=== PATIENT | male | born 1950 | race Caucasian/White ===

== ENCOUNTER 2017-07-03 09:43 | Outpatient (CLI) | payer OTHER ==
[2017-07-03 11:49] LABS: #Lymphocytes 0.7 thou/uL (1.20-3.40); #Monocytes 0.6 thou/uL (0.11-0.59); #Neutrophils 2.5 thou/uL (1.40-6.50); %Basophils 0.5 % (0.0-1.0); %Eosinophils 0.2 % (0.0-10.0); %Lymphocytes 19.4 % (21.0-51.0); %Monocytes 14.8 % (0.0-10.0); Hematocrit 44.5 % (42.0-52.0); Mean Platelet Volume 7.2 fL (7.4-10.4); White Blood Cell (WBC) Count 3.8 thou/uL (4.8-10.8)
[2017-07-03 11:59] LABS: Anion Gap 15 mmol/L (10-20); BUN (Urea Nitrogen) 13 mg/dL (8.4-25.7); Calc. Creatinine Clearance 0 mL/min (70-130); Calcium 8.7 mg/dL (7.8-10.44); Carbon Dioxide 26 mmol/L (23-31); Chloride 101 mmol/L (98-107); Estimated GFR-MDRD Greater than 90
== END 2017-07-03 09:44 | disposition home or self-care (01) ==
LOC: LABBT 09:43
PROVIDERS: ATTEND Orthopaedic Surgery
DX: Z01.818 Encounter for other preprocedural examination (principal); S46.011A Strain of muscle(s) and tendon(s) of the rotator cuff of right shoulder, initial encounter
CPT/HCPCS: 80048; 85025; 93005; 93010

== ENCOUNTER 2017-07-26 06:13 | Day surgery (SDC) | payer OTHER ==
[2017-07-26] MEDS ORDERED: Fentanyl 100 MCG/2 ML VIAL ONE ×2 (06:31→07:34)
[2017-07-26] MEDS ORDERED: Midazolam HCl 2 mg/2 ml Vial ONE (06:31)
[2017-07-26] MEDS ORDERED: Ropivacaine 0.2% HCl/PF 20 ML ONE (06:31)
[2017-07-26] MEDS ORDERED: Vancomycin HCl 1.5 GM in Sodium Chloride 0.9% 250 ML 300 ML IVPB SCH (06:45)
[2017-07-26] MEDS ORDERED: Lidocaine 1% (PF) 30 ML VIAL ONE (06:45)
[2017-07-26] MEDS ORDERED: CEFAZOLIN 1 GM, Syringe 2.5 ML in Sterile Water 7.5 ML SLOW IVP SCH (07:30)
[2017-07-26] MEDS ORDERED: traMADol HCl 50 MG TAB PO PRN ×2 (07:32)
[2017-07-26] MEDS ORDERED: Ropivacaine 0.2% 550 ML 550 ML NERVE BLCK SCH (07:32)
[2017-07-26] MEDS ORDERED: HYDROcodone/Acetaminophen 10/325 mg Tablet PO PRN ×2 (07:32)
[2017-07-26] MEDS ORDERED: Zolpidem Tartrate 5 MG TAB PO PRN (07:32)
[2017-07-26] MEDS ORDERED: Ondansetron HCl/PF 4 MG/2 ML Vial IVP PRN (07:32)
[2017-07-26] MEDS ORDERED: Promethazine HCl 25 MG/ML VIAL IM PRN (07:32)
[2017-07-26] MEDS ORDERED: Fentanyl 100 MCG/2 ML VIAL IV PRN (07:33)
--- NOTE | 2017-07-26 10:33 | OP ---
DATE OF SURGERY: 07/26/2017 PREOPERATIVE DIAGNOSES: Right shoulder superior 25% subscapularis tear as well as biceps tendon tear and subluxation. POSTOPERATIVE DIAGNOSES: Right shoulder superior 25% subscapularis tear as well as biceps tendon tea r and subluxation. PROCEDURES PERFORMED: 1. Right shoulder open repair of the subscapularis. 2. Open biceps tenodesis. SURGEON: Artem Monterroso M.D. CASH POSTING SPECIALIST: Bill Morales PA-C. BLOOD LOSS: Less than 30. COMPLICATIONS: None. He had a general anesthetic. He also had a block. IMPLANTS: We used a 7 x 23 Bio[employer]posite Bio-Tenodesis screw from [employer] for the biceps tenodesis an d we used a [employer]posite 4.75 SwiveLock also from [employer]. CONDITION: He did go to the recovery room in stable condition. INDICATIONS: This is a 66-year-old male injured his shoulder a couple of months ago and was found to have a subscapularis tear and biceps tendon dislocation and at this time opted to have surgery. DESCRIPTION OF PROCEDURE: After all appropriate consent forms were explained and signed, he was take n back to the operating room and at this time was given a general anesthetic. He was then placed in modified beach chair position with all bony prominences well-padded. The right shoulder and upper ex tremity were then prepped and draped in standard surgical fashion. Incision was made down through sk in only. Bovie was used to coagulate any brisk venous bleeding. We then found the cephalic vein and took this laterally with the deltoid wire entering the deltopectoral interval. Conjoint tendon was then swept off the underlying subscapularis and a self-retaining retractor was placed to hold open th e interval. At this time, the biceps sheath was in full fluid and once the cut down to the sheath, a gush of bloody synovial fluid was found and the tendon itself was found to be in very poor condition . It appeared that once the top of the subscapularis had torn as the biceps was subluxating of the g roove, this area had started to erode. At this time, the interval was opened with the scissors and t he scissors were then used to cut the biceps off its labral insertion site. The biceps tendon was th en sutured in the entire diseased portion of the tendon was removed. All excess synovial tissue was removed from around the biceps tendon and the bicipital groove and all brisk of any bleeding was coag ulated. We then sutured this, placed the pin, drilled with a 7 mm acorn reamer to a depth of 25 and placed a 7 x 23 [employer] Bio-Tenodesis screw in standard fashion. Stitches were tied over top of this so the screw could not back out. We then turned our attention to the superior aspect of subsca pularis where it was torn. The edges were freshened up. At this time, an inverted #2 suture was candelario jo through the top portion of the subscap. We then punched and placed 4.75 SwiveLock to perform a r epair of this top portion of the subscap. Once this was done, some interrupted Vicryl sutures were u sed to close our interval and we then thoroughly irrigated and dried. We allowed our deltopectoral i nterval fall upon itself. Again, we irrigated some more and we then loosely close the interval with some Vicryl, 2-0 Vicryl, and surgical gurpreet were used on skin. Bulky sterile dressing was applied, he was awakened and taken to recovery in stable condition. All counts were correct at the end of e case. He did receive preoperative IV antibiotics.
[2017-07-26] MEDS ORDERED: Ropivacaine 0.5% HCl/PF (150 MG/30 ML VIAL) ONE (12:39)
[2017-07-26] MEDS ORDERED: Lidocaine 1% PF 5 ML VIAL ONE (13:36)
[2017-07-26] MEDS ORDERED: Ketorolac Tromethamine 30 MG/ML VIAL ONE (13:36)
[2017-07-26] MEDS ORDERED: Propofol 200 MG/20 ML VIAL ONE (13:36)
[2017-07-26] MEDS ORDERED: Ondansetron HCl/PF 4 MG/2 ML Vial ONE (13:36)
== END 2017-07-26 12:03 | disposition home or self-care (01) ==
LOC: SDC 06:13
PROVIDERS: ATTEND Orthopaedic Surgery
PROC: 0LS30ZZ Reposition Right Upper Arm Tendon, Open Approach (ICD-10-PCS; principal; 2017-07-26)
DX: S43.81XA Sprain of other specified parts of right shoulder girdle, initial encounter (principal); S46.111A Strain of muscle, fascia and tendon of long head of biceps, right arm, initial encounter; I10 Essential (primary) hypertension; E78.00 Pure hypercholesterolemia, unspecified; Z88.1 Allergy status to other antibiotic agents; Z79.899 Other long term (current) drug therapy
CPT/HCPCS: A4216; A4306; C1713; J0690; J1885; J2001; J2250; J2405; J2704; J2795; J3010; J3370; J7050

== ENCOUNTER 2023-09-22 13:20 | Outpatient (CLI) | payer OTHER | END 2023-09-22 13:21 | disposition home or self-care (01) | LOC: ULT 13:20 | PROVIDERS: ATTEND Nurse Practitioner | DX: M79.662 Pain in left lower leg (principal); R93.6 Abnormal findings on diagnostic imaging of limbs | CPT/HCPCS: 93923 ==